=== PATIENT | male | born 1950 | race Caucasian/White ===

== ENCOUNTER 2022-11-16 12:39 | Emergency (ER) | payer OTHER, BC ==
[2022-11-16 13:01] VITALS: BMI 33.7
[2022-11-16] MEDS ORDERED: SODIUM CHLORIDE 1,000 ML IV STA (14:02)
[2022-11-16] MEDS ORDERED: ACETAMINOPHEN 1000 MG/100 ML BAG IVPB ONE (14:22)
[2022-11-16] MEDS ORDERED: ACETAMINOPHEN INJECTION 100 ML IVPB ONE (14:23)
[2022-11-16 14:32] LABS: BASO % 0.6 % (0-2.0); EOS % 1.4 % (0-4.5); HEMATOCRIT 48.3 % (35.4-49); HEMOGLOBIN 16.1 GM/dL (11.7-16.9); MCHC 33.3 g/dl (32.0-35.9); MEAN CELL VOLUME 93.1 fl (80-96); MONO % 12.1 % (3.8-10.2); NEUT % 41.9 % (42.8-82.8); PLATELET COUNT 193 10^3/uL (134-434); RBC 5.19 M/mm3 (4.00-5.60); RDW 14.3 % (11.9-15.9); URINE APPEARANCE CLEAR; URINE BILIRUBIN NEGATIVE (NEGATIVE); URINE COLOR YELLOW; URINE GLUCOSE (UA) 3+ (NEGATIVE); URINE KETONE NEGATIVE (NEGATIVE); URINE LEUK ESTERASE NEGATIVE (NEGATIVE); URINE NITRITE NEGATIVE (NEGATIVE); URINE PROTEIN TRACE (NEGATIVE); URINE UROBILINOGEN 0.2 mg/dL (0.2-1.0); WHITE BLOOD COUNT 5.6 K/mm3 (4.0-10.0)
[2022-11-16 14:38] LABS: INR 0.98 (0.83-1.09); PROTHROMBIN TIME (PATIENT) 11.3 SEC (9.7-13.0)
[2022-11-16 14:41] LABS: ACTIVATED PTT 32.4 SECONDS (25.2-36.5)
[2022-11-16 15:01] LABS: ALBUMIN 4.2 g/dl (3.4-5.0); BLOOD UREA NITROGEN 21.8 mg/dL (7-18); CALCIUM 9.7 mg/dL (8.5-10.1)
[2022-11-16 15:04] LABS: CREATININE 1.2 mg/dL (0.55-1.3)
[2022-11-16 15:06] LABS: BILIRUBIN,TOTAL 0.8 mg/dL (0.2-1); TOT PROT 8.5 g/dl (6.4-8.2)
[2022-11-16 18:19] VITALS: BP 110/76; PULSE 88; RESP 19; TEMP 98.6
== END 2022-11-16 18:17 | disposition home or self-care (01) ==
LOC: JERFT 12:39 → JER 12:39
PROC: 3E033GC Introduction of Other Therapeutic Substance into Peripheral Vein, Percutaneous Approach (ICD-10-PCS; principal; 2022-11-16)
DX: M54.50 Low back pain, unspecified (principal)
CPT/HCPCS: 36415; 74177-TC; 80053; 81003; 84484; 85025; 85610; 85730; 87086; 93005; 93010; 93971-TC; 99285-25; Q9967